=== PATIENT | female | born 1945 | race Caucasian/White ===

== ENCOUNTER 2018-09-12 16:15 | Emergency (ER) | payer MEDICARE ==
[~2018-09-12] VITALS: Ht 154.9 cm; Wt 55.9 kg
[2018-09-12 16:15] VITALS: BP 153/69
[~2018-09-12 16:15] MED LIST: ASPI81TA85 PO; CALTTAB5 PO; CARV12.5 PO; COEN100C PO; CRAN600T PO; CRES5TAB PO; DOXY-350 PO; FLAX10005 PO; MAGN250T6 PO; MULT1TAB10 PO; PROBCAP4 PO; VITA100018 PO; VITA200016 PO; VITA500C24 PO
[2018-09-12] MEDS ORDERED: CEPHALEXIN 250 MG CAP PO ONE (16:45)
[2018-09-12] MEDS ORDERED: KEFL250C11 PO (16:46)
[2018-09-12] MEDS ORDERED: DOXY100C37 PO (16:58)
[2018-09-12 17:29] LABS: RHEUMATOID FACTOR QUANT < 10.0 IU/ML (<15.0); URIC ACID 3.5 MG/DL (2.6-6.0)
[2018-09-16 00:06] LABS: ANTINUCLEAR ANTIBODIES DIRECT Negative (Negative)
== END 2018-09-12 17:07 | disposition home or self-care (01) ==
LOC: M ED 16:49
DX: L03.113 Cellulitis of right upper limb (principal); M19.90 Unspecified osteoarthritis, unspecified site; Z95.1 Presence of aortocoronary bypass graft; Z95.5 Presence of coronary angioplasty implant and graft; Z79.899 Other long term (current) drug therapy; Z79.82 Long term (current) use of aspirin; Z88.0 Allergy status to penicillin; Z88.1 Allergy status to other antibiotic agents; Z88.2 Allergy status to sulfonamides; Z88.5 Allergy status to narcotic agent; Z88.8 Allergy status to other drugs, medicaments and biological substances

== ENCOUNTER → 2020-09-15 | Outpatient (CLI) | payer MEDICARE ==
[~2020-09-15] MED LIST changes: -ASPI81TA85 PO; +ASPI81TA86 PO; -COEN100C PO; +COEN100C4 PO; +DOXY1CAP62 PO; +KEFL250C11 PO
--- NOTE | 2020-09-15 13:49 | REP ---
INDICATION: BENIGN NEOPLASM OF MENINGES, UNSPECIFIED. COMPARISON: Comparison MRI studies are from February 17, 2018 and September 06, 2019. There is a CT scan reviewed from February 04, 2018 as well.. TECHNIQUE: Axial and sagittal imaging planes are utilized for T1 and T2-weighted scans. Sequences include spin-echo, fast spin echo, FLAIR, and diffusion weighted sequences. FINDINGS: No bony calvarial lesion is seen. Craniocervical junction and upper cervical cord are normal in appearance. There is no MR evidence of significant paranasal sinus disease. No intraorbital abnormality is seen. There is generalized volume loss and some small vessel changes. There is a extra-axial mass in the left frontal lobe with a broad due frontal bone dural attachment.. This measures 2.9 x 2.1 by 2.5 cm and is felt to be unchanged from the 2018 prior imaging. This compatible with a meningioma. There is a small quantity of adjacent vasogenic edema in the left frontal lobe periventricular and subcortical white matter. There is some low-level restricted diffusion in the lesion again noted. No other extra-axial or intra-axial mass lesion is seen. No infarct or hemorrhage is seen. IMPRESSION: Stable 2.9 cm left frontal meningioma with mild adjacent vasogenic edema. Unchanged in size or appearance from the February 17, 2018 prior study. Generalized volume loss and small vessel changes are also noted.. <Electronically signed by Bk Augustine > 09/15/20 [id number]
== END ==
LOC: M RAD 10:56
PROVIDERS: ATTEND Neurological Surgery
DX: D32.9 Benign neoplasm of meninges, unspecified (principal)

== ENCOUNTER → 2021-11-20 | Outpatient (CLI) | payer MEDICARE ==
[~2021-11-20] MED LIST changes: +DOXY-443 PO; -DOXY1CAP62 PO
== END ==
LOC: M PLAIMG 12:09
PROVIDERS: ATTEND Neurological Surgery
DX: D32.0 Benign neoplasm of cerebral meninges (principal); G93.6 Cerebral edema; G31.9 Degenerative disease of nervous system, unspecified; R90.82 White matter disease, unspecified

== ENCOUNTER → 2022-10-25 | Outpatient (CLI) | payer MEDICARE ==
[~2022-10-25] MED LIST changes: -DOXY-350 PO; +DOXY-444 PO
== END ==
LOC: M WHC 09:40
PROVIDERS: ATTEND Nurse Practitioner Family
DX: M79.604 Pain in right leg (principal)

== ENCOUNTER → 2022-11-08 | Outpatient (CLI) | payer MEDICARE | LOC: M RAD 12:38 | PROVIDERS: ATTEND Nurse Practitioner Family | DX: N21.0 Calculus in bladder (principal) ==

== ENCOUNTER → 2022-11-12 | Outpatient (CLI) | payer MEDICARE | LOC: M RAD 10:28 | PROVIDERS: ATTEND Neurological Surgery | DX: D32.9 Benign neoplasm of meninges, unspecified (principal) ==

== ENCOUNTER → 2022-11-21 | Outpatient (CLI) | payer MEDICARE | LOC: M SOG 12:55 | PROVIDERS: ATTEND Physician Assistant | DX: M25.551 Pain in right hip (principal) ==

== ENCOUNTER → 2023-02-03 | Outpatient (CLI) | payer MEDICARE | LOC: M WHC 12:39 | PROVIDERS: ATTEND Nurse Practitioner Family | DX: M85.89 Other specified disorders of bone density and structure, multiple sites (principal) ==

== ENCOUNTER → 2023-12-04 | Outpatient (CLI) | payer MEDICARE ==
[~2023-12-04] MED LIST changes: +DOXY-323 PO; +DOXY-440 PO; -DOXY-443 PO; -DOXY-444 PO
== END ==
LOC: M PLARAD 10:43
PROVIDERS: ATTEND Physician Assistant
DX: D32.0 Benign neoplasm of cerebral meninges (principal)

== ENCOUNTER → 2024-02-03 | Outpatient (CLI) | payer MEDICARE ==
[~2024-02-03] MED LIST changes: -DOXY-323 PO; +DOXY-441 PO
== END ==
LOC: M RAD 17:05
PROVIDERS: ATTEND Nurse Practitioner
DX: I82.811 Embolism and thrombosis of superficial veins of right lower extremity (principal)

== ENCOUNTER → 2024-03-11 | Outpatient (CLI) | payer MEDICARE | LOC: M RAD 14:29 | PROVIDERS: ATTEND Emergency Medicine | DX: I83.811 Varicose veins of right lower extremity with pain (principal) ==

== ENCOUNTER → 2024-12-17 | Outpatient (CLI) | payer MEDICARE ==
[~2024-12-17] MED LIST changes: -FLAX10005 PO; +FLAX1CAP6 PO
== END ==
LOC: M RAD 10:22
PROVIDERS: ATTEND Neurological Surgery
DX: D32.9 Benign neoplasm of meninges, unspecified (principal); R90.82 White matter disease, unspecified